=== PATIENT | female | born 1965 | race Caucasian/White ===

== ENCOUNTER 2017-05-18 08:50 | Emergency (ER) | payer OTHER ==
[~2017-05-18] VITALS: Ht 165.1 cm; Wt 73.9 kg
[2017-05-18] MEDS ORDERED: BENZ100A PO (10:04)
[2017-05-18] MEDS ORDERED: ALBU90OI INH (10:04)
[2017-05-18] MEDS ORDERED: MONT10T PO (10:31)
[2017-05-18] MEDS ORDERED: LEVSOD100 PO (10:31)
[2017-05-18] MEDS ORDERED: QNASL8.7 GM (10:32)
[2017-05-18] MEDS ORDERED: SERT50 PO (10:32)
== END 2017-05-18 10:34 | disposition home or self-care (01) ==
LOC: ER 08:50
DX: J06.9 Acute upper respiratory infection, unspecified (principal); J45.909 Unspecified asthma, uncomplicated
CPT/HCPCS: 99283